=== PATIENT | female | born 1990 | race Two or more races ===

== ENCOUNTER 2024-01-13 02:50 | Emergency (ER) | payer MEDICAID ==
[~2024-01-13] VITALS: Ht 165.1 cm; Wt 90.0 kg
[2024-01-13 03:17] LABS: Basophils # (auto) 0 10 ^3/uL (0-0.2); Basophils % (auto) 0.4 % (0.0-2.0); Eosinophils # (auto) 0.3 10 ^3/uL (0-0.8); Eosinophils % (auto) 2.6 % (0.0-7.0); Hemoglobin 12.2 g/dL (12.2-16.2); Lymphocytes # (auto) 3.2 10 ^3/uL (0.4-5.4); Lymphocytes % (auto) 29.8 % (10.0-50.0); Mean Corpuscular Hemoglobin 27.6 pg (28.0-32.0); Mean Corpuscular Hgb Conc. 32.9 g/dL (32.0-36.0); Monocytes % (auto) 9.1 % (0.0-12.0); Neutrophils # (auto) 6.2 10 ^3/uL (1.6-8.6); Neutrophils % (auto) 58.1 % (37.0-80.0); Red Cell Distribution Width 13.5 % (11.8-14.3); White Blood Cell 10.6 10^3/uL (4.4-10.8)
[2024-01-13 03:21] VITALS: PULSE 113; O2SAT 99
[2024-01-13 03:38] LABS: Amphetamine Screen, Urine Neg (NEGATIVE); Barbiturate Scree,Urine Neg (NEGATIVE); Benzodiazephine Screen, Urine Pos (NEGATIVE); Cannabinoid Screen, Urine Neg (NEGATIVE); Cocaine Screen, Urine Neg (NEGATIVE); Opiate Scree,Urine Neg (NEGATIVE); Phencyclidine Screen, Urine Neg (NEGATIVE)
[2024-01-13 03:40] LABS: Alanine Aminotransferase 14 U/L (7-40); Albumin 4.5 g/dL (3.2-4.8); Alkaline Phosphatase 74 U/L (46-116); Anion Gap 8 (5-15); Aspartate Aminotransferase 21 U/L (13-40); BUN/Creatinine Ratio 9.8 (10.0-20.0); Blood Alcohol 127.9 mg/dL (<10); Blood Urea Nitrogen 8 mg/dL (9-23); Calcium 9.4 mg/dL (8.5-10.1); Carbon Dioxide 26 mmol/L (20-30); Chloride 107 mmol/L (98-107); Glucose 111 mg/dL (74-106); Potassium 3.6 mmol/L (3.5-5.1); Sodium 141 mmol/L (136-145)
[2024-01-13 03:41] LABS: Total Protein 7.2 g/dL (5.7-8.2)
[2024-01-13 04:04] LABS: Urine Bacteria FEW /hpf (None Seen); Urine Blood 1+ /uL (Negative); Urine Clarity Clear (Clear); Urine Color Light-Yellow (Yellow); Urine Hyaline Cast FEW /lpf (0 - 2); Urine Mucus FEW (None Seen); Urine Protein, UAD 1+ (Negative); Urine Specific Gravity 1.018 (1.001-1.035); Urine Urobilinogen Normal (Negative); Urine WBC 1 /hpf (0 - 5); Urine WBC Clumps PRESENT /hpf (None Seen); Urine pH 5.5 (5.0-9.0)
[2024-01-13 05:14] LABS: Bilirubin, Total 0.2 mg/dL (0.2-1.0)
[2024-01-13 07:25] VITALS: PULSE 104; RESP 15; O2SAT 99
[2024-01-13] MEDS: SODIUM CHLORIDE 0.9% 1,000 ML IV ONE ×2 (07:36→09:22)
[2024-01-13 08:00] VITALS: TEMP 98.3
[2024-01-13] MEDS: THIAMINE 100mg/ml INJ (200mg/2ml VIAL) IV ONE (08:14)
[2024-01-13] MEDS: ONDANSETRON HCL 4 MG/2 ML VIAL IV ONE (09:19)
[2024-01-13 09:40] VITALS: BP 106/55; PULSE 115; RESP 22; O2SAT 100
== END 2024-01-13 10:01 | disposition home or self-care (01) ==
LOC: ER 02:50
DX: R56.9 Unspecified convulsions (principal); R41.82 Altered mental status, unspecified; F10.129 Alcohol abuse with intoxication, unspecified; Z79.899 Other long term (current) drug therapy; Y90.8 Blood alcohol level of 240 mg/100 ml or more
CPT/HCPCS: 36415; 70450; 71045; 72125; 80053; 80307; 80320; 81001; 85025; 93005; 96361; 96374; 96375; 99285; J2405; J3411; J7030